=== PATIENT | female | born 1985 | race Caucasian/White ===

== ENCOUNTER 2016-07-01 11:02 | Emergency (ER) | payer OTHER ==
[2016-07-01 11:08] VITALS: BP 106/55; PULSE 76; TEMP 98.1; BMI 24.7
--- NOTE | 2016-07-01 11:12 | PDOC ---
History of Present Illness - General Chief Complaint: Pain Stated Complaint: LOWER BACK, ABD PAIN Time Seen by Provider: 07/01/16 11:10 - History of Present Illness Initial Comments: 07/01/16 11:29 Heather is a 31 year old female with no PMH who presents to ED today complaining of intermittent lower back pain, bloating and nausea for the past month. The pt is also complaining of increased frequency to urinate. She didn't have menstrual period last month, only spotting for a day. She did 3 tests at home and is unsure if it was positive. She denies fever, chills, SOB, abdominal pain, vomiting, diarrhea. She denies dysuria, flank pain. She denies correlation of bloating to food. Past History - Past Medical History Allergies/Adverse Reactions: Allergies Allergy/AdvReac Type Severity Reaction Status Date / Time No Known Allergies Allergy Verified 07/01/16 11:08 Home Medications: Ambulatory Orders NK [No Known Home Medication] 07/01/16 Hypercholesterolemia: Yes - Reproductive History Spontaneous : 0 - Psycho/Social/Smoking Cessation Hx Suicidal Ideation: No Smoking Status: No Smoking History: Never smoked Number of Cigarettes Smoked Daily: 0 Information on smoking cessation initiated: No Hx Alcohol Use: No Drug/Substance Use Hx: No Substance Use Type: None Review of Systems - Review of Systems Comments:: 07/01/16 11:39 REVIEW OF SYSTEMS CONSTITUTIONAL: Absent: fever, chills, diaphoresis, generalized weakness, malaise, loss of appetite, weight change HEENT: Absent: rhinorrhea, nasal congestion, throat pain, throat swelling, difficulty swallowing, mouth swelling, ear pain, eye pain, visual changes CARDIOVASCULAR: Absent: chest pain, syncope, palpitations, irregular heart rate, lightheadedness , peripheral edema RESPIRATORY: Absent: cough, shortness of breath, dyspnea with exertion, orthopnea, wheezing, stridor, hemoptysis GASTROINTESTINAL:abdominal distension, bloating Absent: abdominal pain, nausea, vomiting, diarrhea, constipation, melena, hematochezia GENITOURINARY: frequency Absent: dysuria, urgency, hesitancy, hematuria, flank pain, genital pain MUSCULOSKELETAL: back pain Absent: myalgia, joint swelling, back pain, neck pain SKIN: Absent: rash, itching, pallor HEMATOLOGIC/IMMUNOLOGIC: Absent: easy bleeding, easy bruising, lymphadenopathy, frequent infections ENDOCRINE: Absent: unexplained weight gain, unexplained weight loss, heat intolerance, cold intolerance NEUROLOGIC: Absent: headache, focal weakness or paresthesias, dizziness, unsteady gait, seizure, mental status changes, bladder or bowel incontinence *Physical Exam - Vital Signs Last Vital Signs Temp Pulse Resp BP Pulse Ox 98.1 F 76 18 106/55 100 07/01/16 11:06 07/01/16 11:06 07/01/16 11:06 07/01/16 11:06 07/01/16 11:06 - Physical Exam Comments: 07/01/16 11:40 GENERAL: The patient is awake, alert, and fully oriented, in no acute distress. HEAD: Normal with no signs of trauma. EYES: PERRL, extraocular movements intact, sclera anicteric, conjunctiva clear. No ptosis. ENT: Ears normal, nares patent, oropharynx clear without exudates, moist mucous membranes. NECK: Trachea midline, full range of motion, supple. LUNGS: Breath sounds equal, clear to auscultation bilaterally, no wheezes, no crackles, no accessory muscle use. HEART: Regular rate and rhythm, S1, S2 without murmur, rub or gallop. ABDOMEN: Soft, nontender, nondistended, normoactive bowel sounds, no guarding, no rebound, no hepatosplenomegaly, no masses. EXTREMITIES: 2+ pulses, warm, well-perfused, no edema. NEUROLOGICAL:Normal speech, gait not observed. PSYCH: Normal mood, normal affect. SKIN: Warm, dry, normal turgor, no rashes or lesions noted ED Treatment Course - LABORATORY CBC & Chemistry Diagram: 07/01/16 11:40 07/01/16 11:40 Medical Decision Making - Medical Decision Making 07/01/16 11:41 The pt is a 31 year old female who presents with bloating, nausea, back pain. We ordered urine test and UA. 07/01/16 13:55 test is negative. UA: no infection. We added CBC and CMP. The results of CBC: no elevated WBC, no anemia, waiting for CMP, TSH. *DC/Admit/Observation/Transfer Diagnosis at time of Disposition: Chronic fatigue - Discharge Dispostion Disposition: HOME Condition at time of disposition: Good Admit: No - Patient Instructions Additional Instructions: Please call Emergency Room to obtain the results of your laboratory test. We recommend to see primary care physician. If your symptoms worsen come back to Emergency Room as soon as possible.
[2016-07-01 11:41] LABS: URINE APPEARANCE CLEAR; URINE BILIRUBIN NEGATIVE (NEGATIVE); URINE BLOOD NEGATIVE (NEGATIVE); URINE COLOR YELLOW; URINE GLUCOSE (UA) NEGATIVE (NEGATIVE); URINE KETONE NEGATIVE (NEGATIVE); URINE NITRITE NEGATIVE (NEGATIVE); URINE PROTEIN NEGATIVE (NEGATIVE); URINE UROBILINOGEN NEGATIVE E.U./dl (0.2-1.0)
[2016-07-01 11:43] LABS: URINE LEUK ESTERASE TRACE (NEGATIVE)
--- NOTE | 2016-07-01 11:49 | PDOC ---
Attending Attestation - Resident Resident Name: Mary Kay Julio - ED Attending Attestation I have performed the following: I have examined & evaluated the patient, The case was reviewed & discussed with the resident, I agree w/resident's findings & plan, Exceptions are as noted - HPI HPI: 07/01/16 11:00 The patient is a 31 year old female with no significant past medical history, who presents to the emergency department with multiple chronic complaints. She states that for the past 36 months she has had intermittent abdominal bloating and low back discomfort. She has also had intermittent fatigue. She has also had intermittent urinary frequency and urgency. She states that she took 3 tests, one of which was positive, so after approximately 35 minutes. She denies any association of these symptoms with specific foods. She denies weight loss, fever, chills, sweats. She denies heat or cold intolerance, bowel habit changes. 07/01/16 11:49 - Physicial Exam PE: 07/01/16 11:00 She is well-appearing and in no acute distress Abdomen is soft and nontender 07/01/16 11:49 - Medical Decision Making 07/01/16 11:00 She is well-appearing and in no acute distress Will obtain basic labs, urinalysis, urine test 07/01/16 14:26 Chemiustries have been pending since 11am despite requests to have them expedited The patient needs to leave to fish bait picker her daughter and emigdio call us for results Clinical impression: Chronic fatigue I discussed the physical exam findings, ancillary test results and final diagnoses with the patient. I answered all of the patient's questions. The patient was satisfied with the care received and felt comfortable with the discharge plan and treatment plan. The patient will call their primary care physician within 24 hours to arrange follow-up and will return to the Emergency Department with any new, persistent or worsening symptoms.
[2016-07-01 11:53] LABS: URINE MUCUS RARE; URINE RBC 2 /hpf (0-3); URINE WBC 4 /hpf (3-5)
[2016-07-01 11:57] LABS: MCH 29.2 pg (25.7-33.7); MCHC 34.8 g/dl (32.0-36.0); MEAN CELL VOLUME 83.9 fl (80-96); MEAN PLT VOLUME 8.8 fl (7.5-11.1); PLATELET COUNT 316 K/MM3 (134-434); RDW 13.6 % (11.6-15.6); WHITE BLOOD COUNT 8.5 K/mm3 (4.0-10.0)
== END 2016-07-01 14:35 | disposition home or self-care (01) ==
LOC: JER 11:02
DX: R53.82 Chronic fatigue, unspecified (principal); E78.00 Pure hypercholesterolemia, unspecified
CPT/HCPCS: 36415; 81003; 81015; 84703; 85027; 99283-25

== ENCOUNTER 2016-08-09 18:10 | Emergency (ER) | payer OTHER ==
[2016-08-09 18:17] VITALS: BP 120/66; PULSE 102; TEMP 98; BMI 27.3
--- NOTE | 2016-08-09 18:57 | PDOC ---
History of Present Illness - General Chief Complaint: Respiratory Stated Complaint: SHORTNESS OF BREATH Time Seen by Provider: 08/09/16 18:36 History Source: Patient Exam Limitations: No Limitations - History of Present Illness Initial Comments: 08/09/16 18:52 31 yr female states 6 weeks c/o sinus congestion and facial pressure for one week. no fever some nasal drainage . Timing/Duration: reports: week Severity: reports: mild Past History - Past Medical History Allergies/Adverse Reactions: Allergies Allergy/AdvReac Type Severity Reaction Status Date / Time No Known Allergies Allergy Verified 08/09/16 18:14 Home Medications: Ambulatory Orders Amoxicillin/Potassium Clav [Augmentin 875-125 Tablet] 1 each PO BID #14 tablet 08/09/16 Hypercholesterolemia: Yes - Reproductive History Spontaneous : 0 - Psycho/Social/Smoking Cessation Hx Anxiety: No Suicidal Ideation: No Smoking Status: No Smoking History: Never smoked Have you smoked in the past 12 months: No Number of Cigarettes Smoked Daily: 0 Information on smoking cessation initiated: No Hx Alcohol Use: No Drug/Substance Use Hx: No Substance Use Type: None *Physical Exam - Vital Signs Last Vital Signs Temp Pulse Resp BP Pulse Ox 98 F 102 H 18 120/66 100 08/09/16 18:15 08/09/16 18:15 08/09/16 18:15 08/09/16 18:15 08/09/16 18:15 - Physical Exam General Appearance: Yes: Nourished, Appropriately Dressed HEENT: positive: EOMI, LEXI, TMs Normal, Pharynx Normal, Nasal Congestion, Sinus Tenderness (maxilary ), Other (swelling across the nasal bridge to under eyes bilateraly ). negative: Tonsillar Exudate, Tonsillar Erythema, TM Bulging , TM Dull, TM Erythema Neck: positive: Supple. negative: Tender Respiratory/Chest: positive: Lungs Clear, Normal Breath Sounds Cardiovascular: positive: Regular Rhythm, Regular Rate Gastrointestinal/Abdominal: positive: Normal Bowel Sounds, Soft Musculoskeletal: positive: Normal Inspection Extremity: positive: Normal Capillary Refill, Normal Inspection, Normal Range of Motion Integumentary: positive: Normal Color, Dry, Warm Neurologic: positive: Fully Oriented, Alert, Normal Mood/Affect, Normal Response , Motor Strength 5/5 Medical Decision Making - Medical Decision Making 08/09/16 19:01 cc: sinus tenderness, congestion for one week , nasal discharge and boggyness to bilateral nares will treat with Augmentin and saline spray follow up with ENT tylenol as needed for pain return to ER for any worsening symptoms in 48hrs *DC/Admit/Observation/Transfer Diagnosis at time of Disposition: Acute maxillary sinusitis Qualifiers: Recurrence: non-recurrent Qualified Code(s): J01.00 - Acute maxillary sinusitis , unspecified - Discharge Dispostion Disposition: HOME Condition at time of disposition: Good - Prescriptions Prescriptions: Amoxicillin/Potassium Clav [Augmentin 875-125 Tablet] 1 each PO BID #14 tablet - Referrals Referrals: STAFF,NOT ON [Primary Care Provider] - Darek Gonzalez MD [Staff Physician] - - Patient Instructions Additional Instructions: use nasal saline as directed (over the counter) take the Augmentin as directed for 7 days frequent cool compresses over your cheeks and eyes can help with pain take tylenol as needed for pain follow with ENT call tomorrow to make appointment Return to ER for any worsening symptoms
== END 2016-08-09 19:01 | disposition home or self-care (01) ==
LOC: JERFT 18:10
DX: O99.89 Other specified diseases and conditions complicating pregnancy, childbirth and the puerperium (principal); J01.00 Acute maxillary sinusitis, unspecified; Z3A.01 Less than 8 weeks gestation of pregnancy
CPT/HCPCS: 99281-25

== ENCOUNTER 2017-07-08 06:25 | Emergency (ER) | payer OTHER ==
[2017-07-08 06:46] LABS: BASO % 0.4 % (0-2.0); EOS % 1.8 % (0-4.5); HEMATOCRIT 37.9 % (32.4-45.2); HEMOGLOBIN 13.4 GM/dL (10.7-15.3); MCH 30.6 pg (25.7-33.7); MCHC 35.3 g/dl (32.0-36.0); MEAN CELL VOLUME 86.5 fl (80-96); MONO % 7.8 % (3.8-10.2); PLATELET COUNT 327 K/MM3 (134-434); RBC 4.38 M/mm3 (3.60-5.2); RDW 13.8 % (11.6-15.6); WHITE BLOOD COUNT 7.1 K/mm3 (4.0-10.0)
[2017-07-08 06:55] VITALS: BMI 25.4
[2017-07-08 07:13] LABS: ALBUMIN 3.9 g/dl (3.4-5.0); ANION GAP 9 (8-16); BILIRUBIN,TOTAL 0.5 mg/dL (0.2-1.0); BLOOD UREA NITROGEN 13 mg/dL (7-18); CHLORIDE 106 mmol/L (98-107); CO2 26 mmol/L (21-32); CREATININE 0.7 mg/dL (0.55-1.02); GLUCOSE,RANDOM 89 mg/dL (74-106); SGOT/AST 13 U/L (15-37); SGPT/ALT 18 U/L (12-78); SODIUM 141 mmol/L (136-145); TOT PROT 7.5 g/dl (6.4-8.2)
[2017-07-08 07:14] LABS: ALK PHOS 54 U/L (45-117)
[2017-07-08] MEDS ORDERED: morphine CARPU-JECT 4 MG/1 ML DISP.SYRIN IVPUSH ONE (07:24)
[2017-07-08] MEDS ORDERED: SODIUM CHLORIDE 1,000 ML IV STA ×2 (07:24→10:52)
--- NOTE | 2017-07-08 07:30 | PDOC ---
Attending Attestation - Resident Resident Name: Mc Ortiz - ED Attending Attestation I have performed the following: I have examined & evaluated the patient, The case was reviewed & discussed with the resident, I agree w/resident's findings & plan, Exceptions are as noted - HPI HPI: 07/08/17 09:52 Ms Ventura is a 32-year-old female presented to emergency department with a complaint of pelvic pain, vaginal bleeding. Her history is constipated and includes a recent , status post medical termination, pt reports bleeding and abdominal pain. 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
[2017-07-08] MEDS ORDERED: MORPHINE SULFATE 10 MG/1 ML *VIAL ONE (07:44)
[2017-07-08] MEDS ORDERED: LACTATED RINGERS SOLUTION 1000 ML INFUS.BAG IV ONE (07:49)
--- NOTE | 2017-07-08 08:04 | PDOC ---
History of Present Illness - General Chief Complaint: Pain, Acute Stated Complaint: ABDOMINAL PAIN Time Seen by Provider: 07/08/17 07:16 History Source: Patient Exam Limitations: No Limitations - History of Present Illness Initial Comments: 07/08/17 07:56 Patient is a 32F with history of an unknown sexually transmitted disease here today complaining of 1 day of lower abdominal pain. Patient states that she is unsure if she has pain with urination. Endorses vaginal bleeding and spotting for the past month. Patient has IUD placed 3 weeks ago after taking oral contraceptives for a week. Patient states that she took a pill for an 6 weeks ago. Last bowel movement yesterday. Denies fevers, chills, nausea, vomiting. Her pain is worsened with exertion and movement. Past History - Past Medical History Allergies/Adverse Reactions: Allergies Allergy/AdvReac Type Severity Reaction Status Date / Time No Known Allergies Allergy Verified 07/08/17 07:17 Home Medications: Ambulatory Orders Amoxicillin/Potassium Clav [Augmentin 875-125 Tablet] 1 each PO BID #14 tablet 08/09/16 Amoxicillin/Potassium Clav [Augmentin 875-125 Tablet] 1 each PO BID #28 tablet 07/08/17 COPD: No Hypercholesterolemia: Yes - Reproductive History Spontaneous : 0 - Suicide/Smoking/Psychosocial Hx Smoking Status: No Smoking History: Unknown if ever smoked Have you smoked in the past 12 months: No Number of Cigarettes Smoked Daily: 0 Information on smoking cessation initiated: No Hx Alcohol Use: No Drug/Substance Use Hx: No Substance Use Type: None Review of Systems - Review of Systems Comments:: 07/08/17 08:04 GENERAL/CONSTITUTIONAL: No fever or chills. No weakness. HEAD, EYES, EARS, NOSE AND THROAT: No change in vision. No sore throat. CARDIOVASCULAR: No chest pain or shortness of breath RESPIRATORY: No cough, wheezing, or hemoptysis. GASTROINTESTINAL: No nausea, vomiting, diarrhea or constipation. GENITOURINARY: No dysuria, frequency, or change in urination. MUSCULOSKELETAL: No joint or muscle swelling or pain. No neck or back pain. SKIN: No rash NEUROLOGIC: No headache, vertigo, loss of consciousness, or change in strength/ sensation. ALLERGIC/IMMUNOLOGIC: No hives or skin allergy. *Physical Exam - Vital Signs Last Vital Signs Temp Pulse Resp BP Pulse Ox 98.7 F 72 17 108/67 100 07/08/17 06:52 07/08/17 06:52 07/08/17 06:52 07/08/17 06:52 07/08/17 06:52 - Physical Exam Comments: 07/08/17 08:05 GENERAL: Awake, alert, and fully oriented, in no acute distress PELVIC: Normal external genitalia, +CMT, moderate amount of blood in vagina, closed cervical os, IUD not visualized. HEAD: No signs of trauma, normocephalic, atraumatic EYES: PERRLA, EOMI, sclera anicteric, conjunctiva clear ENT: Auricles normal inspection, hearing grossly normal, nares patent, oropharynx clear without exudates. Moist mucosa NECK: Normal ROM, supple, no lymphadenopathy, JVD, or masses LUNGS: No distress, speaks full sentences, clear to auscultation bilaterally HEART: Regular rate and rhythm, normal S1 and S2, no murmurs, rubs or gallops, peripheral pulses normal and equal bilaterally. ABDOMEN: Soft, tender in lower abdomen. Positive for voluntary guarding, no rebound. No masses EXTREMITIES: Normal inspection, Normal range of motion, no edema. No clubbing or cyanosis. NEUROLOGICAL: Cranial nerves II through XII grossly intact. Normal speech, normal gait, no focal sensorimotor deficits SKIN: Warm, Dry, normal turgor, no rashes or lesions noted. ED Treatment Course - LABORATORY CBC & Chemistry Diagram: 07/08/17 06:32 07/08/17 06:32 - ADDITIONAL ORDERS Additional order review: Laboratory Results 07/08/17 06:32 Sodium 141 Potassium 4.0 Chloride 106 Carbon Dioxide 26 Anion Gap 9 BUN 13 Creatinine 0.7 Creat Clearance w eGFR > 60 Random Glucose 89 Calcium 9.0 Total Bilirubin 0.5 AST 13 L ALT 18 Alkaline Phosphatase 54 Total Protein 7.5 Albumin 3.9 07/08/17 06:32 RBC 4.38 MCV 86.5 MCHC 35.3 RDW 13.8 MPV 9.0 Neutrophils % 62.0 Lymphocytes % 28.0 Monocytes % 7.8 Eosinophils % 1.8 D Basophils % 0.4 - RADIOLOGY Radiology Studies Ordered: Category Date Time Status TRANSVAGINAL ULTRASOUND US [US] Stat Ultrasound 07/08/17 07:36 Ordered - Medications Given in the ED: ED Medications Discontinued Medications Generic Name Dose Route Start Last Admin Trade Name Freq PRN Reason Stop Dose Admin Morphine Sulfate 4 mg 07/08/17 07:24 07/08/17 07:48 Morphine Injection - IVPUSH 07/08/17 07:25 4 mg ONCE ONE Administration Medical Decision Making - Medical Decision Making 07/08/17 08:06 Patient is a 32F with history of STD here today with lower abdominal pain. +CMT on exam with suprapubic tenderness. Believe patient has PID. Will evaluate further with cbc, cmp, ua, test and ultrasound to evaluate for TOA. 07/08/17 08:10 Laboratory Tests 07/08/17 07/08/17 06:32 07:26 WBC 7.1 Hgb 13.4 Hct 37.9 Plt Count 327 Serum , Qual Positive Serum positive, will add on beta quant. 07/08/17 08:59 Dr Lion consulted, examined patient. Believes that patient has PID. Recommends that treat today with IV ceftriaxone, metronidazole and PO azithromycin and discharge with PO augmentin and metronidazole. 07/08/17 10:42 Laboratory Tests 07/08/17 07/08/17 07/08/17 06:32 06:32 07:26 WBC 7.1 Hgb 13.4 Hct 37.9 Plt Count 327 Beta HCG, Quant 66.2 Serum , Qual Positive Urine Blood Ur Leukocyte Esterase Urine WBC (Auto) 07/08/17 09:25 WBC Hgb Hct Plt Count Beta HCG, Quant Serum , Qual Urine Blood 3+ H Ur Leukocyte Esterase 1+ H Urine WBC (Auto) 7 CBC normal. Beta quant positive to 66.2. CMP reassuring. UA shows possible UTI, will be covered by augmentin and metronidazole. US shows properly placed IUD, mildly thickened endometrium, ovariance cysts with 4cm and 3cm in diameter, no evidence of torsion. IV antibiotics running, will discharge with instructions to follow up with OBGYN. 07/08/17 10:53 Patient reassessed. Pain improved. Feeling better. *DC/Admit/Observation/Transfer Diagnosis at time of Disposition: PID (acute pelvic inflammatory disease), test positive - Discharge Dispostion Disposition: HOME Condition at time of disposition: Good Admit: No - Prescriptions Prescriptions: Amoxicillin/Potassium Clav [Augmentin 875-125 Tablet] 1 each PO BID #28 tablet - Referrals Referrals: Annie Lion MD [Staff Physician] - - Patient Instructions Printed Discharge Instructions: DI for Pelvic Inflammatory Disease Additional Instructions: You were prescribed antibiotics to take at home. They have been sent to your pharmacy. Please start taking them tonight. If you are unable to take your antibiotics, please come back to the Emergency Department. You had a positive test in the ED today. Please return in two days to the ED to have another blood test. Please call the OBGYN physician provided in your paperwork on Monday to schedule an appointment. Please return if you have any new, worsening or concerning symptoms. - Post Discharge Activity
[2017-07-08] MEDS ORDERED: CEFTRIAXONE 1,000 MG in DEXTROSE 5%-WATER - 50 ML IVPB ONE (08:57)
[2017-07-08] MEDS ORDERED: AZITHROMYCIN 500 MG TABLET PO ONE ×2 (08:58→10:46)
[2017-07-08] MEDS ORDERED: CEFTRIAXONE 1 GM/50 ML BAG ONE (09:24)
[2017-07-08] MEDS ORDERED: AZITHROMYCIN IVPB 250 ML IVPB ONE (09:24)
[2017-07-08 09:45] LABS: URINE APPEARANCE CLEAR; URINE BILIRUBIN NEGATIVE (<2.0 mg/dL); URINE BLOOD 3+ (NEGATIVE); URINE COLOR YELLOW; URINE GLUCOSE (UA) NEGATIVE (NEGATIVE); URINE KETONE NEGATIVE (NEGATIVE); URINE NITRITE NEGATIVE (NEGATIVE); URINE PROTEIN NEGATIVE (NEGATIVE); URINE UROBILINOGEN NEGATIVE mg/dL (0.2-1.0)
[2017-07-08] MEDS ORDERED: AZITHROMYCIN 500 MG TABLET ONE (09:45)
[2017-07-08 09:48] LABS: URINE LEUK ESTERASE 1+ (NEGATIVE)
[2017-07-08 09:53] LABS: EPI CELLS RARE /HPF (FEW); URINE MUCUS RARE
[2017-07-08] MEDS ORDERED: AZITHROMYCIN IVPB 500 MG in DEXTROSE 5%-WATER - 250 ML IVPB ONE (10:46)
[2017-07-08 11:00] VITALS: TEMP 97.8
--- NOTE | 2017-07-08 11:27 | CON.OBG ---
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 since today AM History of Present Illness: ptt has h/o temination of for 6 weeks gestation at [facility] in [place] . Medically induced on 05/24/17. pt c/o bleeding since then , she had heavy bleeding for 3-4 weeks , but noww it has become less , sometimes spoting. she was given [place] control pills , she took only for 1 weekk she states she had Paragard IUD inserted 3 weeks ago there. But she has been having abd pain ever since TOP, it has not stopped she declines h/o std no c/o vomiting or fever or diarrhea . 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 No: Gastritis Renal/: Yes: Other (c/o dysuria due to pain ). No: UTI Reproductive: Yes: Other (OB History : G1 02/05/2009 Primary c/section due to FTP at [facility] . G2 Sp Ab 5 months , G3 Ind ab medicall 05/24/17 in ). No: Ectopic , Endometriosis, Fibroids, Polycystic Ovary Syndrome ...LMP: 04/11/17 (before TOP , continuous bleeding since TOP ) ...: No ...: 3 ...Para: 1 Heme/Onc: No: Anemia Infectious Disease: Yes: Other (declines h/o std ) Psych: Yes: Other (declines mental health problems ) - Past Surgical History Past Surgical History: Yes: (02/05/2009) Additional Surgical History: abdominoplasty 2014 in [facility] - Alcohol/Substance Use Hx Alcohol Use: No History of Substance Use: reports: None - Smoking History Smoking history: Unknown if ever smoked Have you smoked in the past 12 months: No Aproximately how many cigarettes per day: 0 Home Medications - Allergies Allergies/Adverse Reactions: Allergies Allergy/AdvReac Type Severity Reaction Status Date / Time No Known Allergies Allergy Verified 07/08/17 07:17 - Home Medications Home Medications: Ambulatory Orders Amoxicillin/Potassium Clav [Augmentin 875-125 Tablet] 1 each PO BID #14 tablet 08/09/16 Amoxicillin/Potassium Clav [Augmentin 875-125 Tablet] 1 each PO BID #28 tablet 07/08/17 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 No: Distention, Vomiting ...Rectal Exam: Yes: Deferred Pelvis: Yes: Tenderness (supf & deep tenderness) External Genitalia: Yes: Normal Internal Exam Deferred: Yes Vaginal Exam: Yes: Bleeding (stainng ,iud string noted) Cervix: Yes: Cerv Motion Tenderness, Other (iud string palpable) Uterus: Yes: Anteverted, Tender, Other (unable to dtermine size due to tendeness ) Adnexa: Tender: Bilateral (unable to palpate due to tenderness ) Breast(s): Yes: WNL. No: Mass Musculoskeletal: Yes: WNL Extremities: Yes: WNL. No: Calf Tenderness Edema: No Integumentary: Yes: Incision (abdominoplasty keloid type scar, across lower abd) , Tattoos Neurological: Yes: WNL, Alert, Oriented ...Motor Strength: WNL Psychiatric: Yes: WNL Labs: CBC, BMP 07/08/17 06:32 07/08/17 06:32 Laboratory Tests 07/08/17 07/08/17 07/08/17 06:32 08:00 09:25 AST 13 L ALT 18 Beta HCG, Quant 66.2 Urine Protein Negative Urine Nitrite Negative Ur Leukocyte Esterase 1+ H Urine WBC (Auto) 7 Urine RBC (Auto) 41 C. trachomatis (BERNARDO) Pending N. gonorrhoeae (BERNARDO) Pending Problem List - Problems (1) Acute PID (pelvic inflammatory disease) Code(s): N73.0 - ACUTE PARAMETRITIS AND PELVIC CELLULITIS (2) Status post elective Code(s): Z98.890 - OTHER SPECIFIED POSTPROCEDURAL STATES (3) IUD (intrauterine device) in place Code(s): Z97.5 - PRESENCE OF (INTRAUTERINE) CONTRACEPTIVE DEVICE Assessment/Plan 32 yrs , s/p recent medically induced abortio is bleeding since , AC pid suspected Plan IV rocephine & IV flagyl , Po zithromax pt should be discharged on po Augmentin bid needs follow up hcg., to see declining titer . 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
[2017-07-08 15:58] VITALS: BP 100/56; PULSE 76
== END 2017-07-08 13:21 | disposition home or self-care (01) ==
LOC: JER 06:25
PROC: 3E03329 Introduction of Other Anti-infective into Peripheral Vein, Percutaneous Approach (ICD-10-PCS; principal; 2017-07-08)
PROC: 3E03329 Introduction of Other Anti-infective into Peripheral Vein, Percutaneous Approach (ICD-10-PCS; 2017-07-08)
PROC: 3E033NZ Introduction of Analgesics, Hypnotics, Sedatives into Peripheral Vein, Percutaneous Approach (ICD-10-PCS; 2017-07-08)
DX: N73.0 Acute parametritis and pelvic cellulitis (principal); O03.6 Delayed or excessive hemorrhage following complete or unspecified spontaneous abortion; Z97.5 Presence of (intrauterine) contraceptive device; Z98.890 Other specified postprocedural states
CPT/HCPCS: 36415; 76817-TC; 80053; 81003; 81015; 84702; 84703; 85025; 86850; 86900; 86901; 87086; 87491; 87591; 96365; 96367; 96375; 99284-25; J7030

== ENCOUNTER 2017-12-11 22:00 | Emergency (ER) | payer OTHER ==
[2017-12-11 22:25] VITALS: TEMP 99.2; BMI 25.4
--- NOTE | 2017-12-11 23:21 | PDOC ---
History of Present Illness - General Chief Complaint: Cold Symptoms Stated Complaint: SWOLLEN NOSE Time Seen by Provider: 12/11/17 22:54 History Source: Patient Exam Limitations: No Limitations - History of Present Illness Initial Comments: 12/11/17 23:11 32 yo female no significant pmh presents to the ED for 1 week of nasal congestion, sinus pressure and headaches. States she took tylenol, psuedophed and mucinex without relief. Denies sore throat, cough, ear pain, F/C/N/V, SOB, CP or abdominal pain. Past History - Past Medical History Allergies/Adverse Reactions: Allergies Allergy/AdvReac Type Severity Reaction Status Date / Time No Known Allergies Allergy Verified 12/11/17 23:42 Home Medications: Ambulatory Orders NK [No Known Home Medication] 12/11/17 COPD: No Hypercholesterolemia: Yes - Reproductive History (#): 3 Para: 1 Spontaneous : 0 - Suicide/Smoking/Psychosocial Hx Smoking Status: No Smoking History: Never smoked Have you smoked in the past 12 months: No Number of Cigarettes Smoked Daily: 0 Information on smoking cessation initiated: No Hx Alcohol Use: No Drug/Substance Use Hx: No Substance Use Type: None Review of Systems - Review of Systems Constitutional: No: Chills, Fever HEENTM: Yes: Nose Congestion. No: Blurred Vision, Ear Discharge, Throat Pain, Difficulty Swallowing Respiratory: No: Cough, Shortness of Breath Cardiac (ROS): No: Chest Pain ABD/GI: No: Constipated, Diarrhea, Nausea, Vomiting : No: Burning, Dysuria, Discharge, Frequency Neurological: Yes: Headache *Physical Exam - Vital Signs Last Vital Signs Temp Pulse Resp BP Pulse Ox 99.2 F 73 18 95/71 100 12/11/17 22:23 12/11/17 22:23 12/11/17 22:23 12/11/17 22:23 12/11/17 22:23 - Physical Exam General Appearance: Yes: Nourished, Appropriately Dressed. No: Apparent Distress HEENT: positive: EOMI, Normal ENT Inspection, TMs Normal, Sinus Tenderness, Hearing Grossly Normal. negative: Pale Conjunctivae, Rhinorrhea, TM Bulging, TM Erythema Neck: positive: Normal Thyroid. negative: Tender, Lymphadenopathy (R), Lymphadenopathy (L) Respiratory/Chest: positive: Lungs Clear, Normal Breath Sounds. negative: Stridor, Wheezing Cardiovascular: positive: Regular Rhythm, Regular Rate, S1, S2. negative: Edema , JVD, Murmur Vascular Pulses: Dorsalis-Pedis (R): 4+, Doralis-Pedis (L): 4+ Gastrointestinal/Abdominal: positive: Normal Bowel Sounds, Soft. negative: Pulsatile Mass, Distended, Guarding, Rebound Integumentary: positive: Normal Color, Dry, Warm Neurologic: positive: Fully Oriented, Alert, Normal Mood/Affect, Normal Response Medical Decision Making - Medical Decision Making 12/11/17 23:45 32 yo female presents to ED for NUNEZ, sinus pain and nasal congestion. Advised to take over the counter higher dose psuedophed, hot showers and Motrin/ Tylenol as needed Referred to resident clinic Discharge home *DC/Admit/Observation/Transfer Diagnosis at time of Disposition: Sinusitis Qualifiers: Sinusitis location: ethmoidal Chronicity: acute Recurrence: not specified as recurrent Qualified Code(s): J01.20 - Acute ethmoidal sinusitis, unspecified - Discharge Dispostion Disposition: HOME Condition at time of disposition: Good Decision to Admit order: No - Referrals Referrals: [facility] [Other Staff,non-medical] - - Patient Instructions Printed Discharge Instructions: How to Avoid a Cold or Flu, DI for Sinusitis Additional Instructions: Please take over the counter Motrin and Tylenol as needed. Also take higher dose over the counter Pseudoephedrine as directed by Pharmacist. Please follow up with the referred Primary Care Clinic within the next 48 hours. Return to the Emergency Room for new or worsening symptoms including but not limited to: persistent headaches not relieved by over the counter medication, high fevers, chest pain, shortness of breath or coughing up blood. - Post Discharge Activity Forms/Work/School Notes: Back to Work
[2017-12-11] MEDS ORDERED: ACETAMINOPHEN 500 MG TABLET (FP) PO ONE (23:48)
--- NOTE | 2017-12-11 23:52 | PDOC ---
Attending Attestation - Resident Resident Name: BerthaNazario - ED Attending Attestation I have performed the following: I have examined & evaluated the patient, The case was reviewed & discussed with the resident, I agree w/resident's findings & plan - HPI HPI: 12/11/17 23:52 The patient is a 32 year old female, with no significant past medical history, who presents to the emergency department with one week of headache, sinus pain, and sinus congestion. She states she has taken Tylenol and Sudafed without any relief of her sinus congestion. The patient denies chest pain, shortness of breath, and dizziness. The patient denies fever, chills, nausea, vomit, diarrhea and constipation. The patient denies dysuria, frequency, urgency and hematuria. Allergies: NKDA Past surgical history: none reported Social history: denies ETOH or tobacco - Physicial Exam PE: 12/11/17 23:52 NAD, well appearing, NCAT, PERRL, EOMI, clear conjunctiva, anicteric, moist mucus membranes, clear oropharynx. Airway patent, normal phonation. Uvula midline. +mild frontal sinus tender to percussion, MMM, nl conjunctiva, anicteric; neck supple, no meningeal signs. lungs clear, RRR, abdomen soft nontender. PETTIT x4, no focal neuro deficits. No peripheral edema. normal color for ethnicity, WWP. - Medical Decision Making 12/11/17 23:48 A portion of this note was documented by scribe services under my direction. I have reviewed the details of the note, within reason, and agree with the documentation with the following case summary and management plan written by me. MDM: Audrey 32 YOF with congestion and sinus pressure and headache x 1 week, s/ p mucinex, pseudophed and tylenol with some relief. 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 No fever or chill/sore throat, vomiting or diarrhea. Vital signs reviewed, wnl. Well appearing, nontoxic. PE unremarkable as documented. Given tylenol for mild headache. Nader PO intake w/o difficulty. Instructions of dosing of meds, humidifier and sinus decongestants. tylenol/NSAID PRN pain and headache control. Most likely viral syndrome vs sinusitis, no indication for antibiotics as <2 weeks and no fever or systemic sx to suggest bacterial infection. Dispo: Pt to be discharged in stable condition. Patient and family made aware of impression and plan, return precautions discussed (including but not limited to worsening pain or symptoms), fevers, or signs of infection, chest pain, respiratory distress, inability to tolerate oral intake, dehydration, syncope, or neurologic changes). Follow up with PMD and/or specialist as recommended, follow up information provided, take medications as instructed for duration of time. continue with supportive care, avoid triggers and precipitants. All questions answered to patient's satisfaction and expressed understanding and comfort with this. 12/11/17 23:52 12/11/17 23:52
[2017-12-12] MEDS ORDERED: ACETAMINOPHEN 325 MG TABLET (FP) ONE
[2017-12-12 00:05] VITALS: BP 102/67; PULSE 78
== END 2017-12-12 00:04 | disposition home or self-care (01) ==
LOC: JER 22:00
DX: J01.20 Acute ethmoidal sinusitis, unspecified (principal)
CPT/HCPCS: 99282-25

== ENCOUNTER 2019-01-01 10:53 | Emergency (ER) | payer OTHER ==
[2019-01-01 10:58] VITALS: TEMP 98.6; BMI 27.3
[2019-01-01] MEDS ORDERED: ACETAMINOPHEN 325 MG TABLET (FP) PO ONE (11:05)
[2019-01-01] MEDS ORDERED: SODIUM CHLORIDE 1,000 ML IV STA (11:05)
--- NOTE | 2019-01-01 11:14 | PDOC ---
History of Present Illness - General Chief Complaint: Pain Stated Complaint: PAIN Time Seen by Provider: 01/01/19 11:04 History Source: Patient Exam Limitations: No Limitations - History of Present Illness Initial Comments: 01/01/19 11:57 33 YOF with h.o PID presenting with +home testing, suprapubic cramping and VB pt states about 2 weeks ago after sexual intercourse, she had 1 day of VB with some passage of clots and intermittent suprapubic cramping. also intermittently Nausea and vomiting. LMP November 07, 2018 Sexually active. Denies fever, chills, chest pain, SOB, dizziness, weakness, bladder and bowel problems, leg swelling, rash. no flank pain. PSH: C section PMH: PID, STD Social: no smoking, etoh or drugs 01/01/19 11:58 01/01/19 11:58 Past History - Past Medical History Allergies/Adverse Reactions: Allergies Allergy/AdvReac Type Severity Reaction Status Date / Time No Known Allergies Allergy Verified 01/01/19 09:42 Home Medications: Ambulatory Orders NK [No Known Home Medication] 12/11/17 COPD: No Hypercholesterolemia: Yes - Reproductive History (#): 3 Para: 1 Spontaneous : 0 - Psycho Social/Smoking Cessation Hx Smoking Status: No Smoking History: Never smoked Have you smoked in the past 12 months: No Number of Cigarettes Smoked Daily: 0 Hx Alcohol Use: No Drug/Substance Use Hx: No Substance Use Type: None Review of Systems - Review of Systems Able to Perform ROS?: Yes Comments:: 01/01/19 11:07 Review of systems Constitutional: no fevers or chills. No weakness HEENT: no headache or dizziness. No congestion. No visual/hearing disturbances. CVS: no cp or syncope. Resp: no sob. No cough. Gastrointestinal: +abdominal pain, nausea and vomiting. Genitourinary: no urinary sx, hematuria. +vaginal bleeding. MUSCULOSKELETAL: No joint pain and swelling. No neck or back pain. SKIN: no redness or skin changes, no discharge, no rash. No wounds. Hematologic: no easy bruising/bleeding. NEUROLOGIC: No headache, dizziness, LOC or altered mental status. No weakness, numbness or tingling. Psych: no anxiety or depression Allergic/Immunologic: no allergies All other systems reviewed and negative, or as documented in HPI. 01/01/19 11:58 *Physical Exam - Vital Signs Last Vital Signs Temp Pulse Resp BP Pulse Ox 98.6 F 88 17 99/62 99 01/01/19 10:57 01/01/19 10:57 01/01/19 10:57 01/01/19 10:57 01/01/19 11:04 - Physical Exam Comments: 01/01/19 11:07 General: Well appearing, awake and alert, NAD. HEENT: NCAT, PERRL, EOMI, clear conjunctiva, anicteric, moist mucus membranes, clear oropharynx, no oral lesions.. Neck: neck supple, FROM Resp: CTAB, normal and even respirations, no respiratory distress CVS: RRR, no murmurs, 2+ peripheral pulses throughout, no peripheral edema Abdomen: soft, NTND, no rebound or guarding. No CVAT. lower horizontal abdominal surgical scar Pelvic: normal external genitalia, no lesions, clear vaginal vault, no CMT, no adnexal tenderness. Smooth and pink cervix, closed. Back: nontender, normal inspection and ROM MSK: no edema, PETTIT x4, ROM intact. No clubbing or cyanosis. normal bulk and tone. Extremities: no calf tenderness Neuro: alert, oriented appropriately; no focal neurologic deficits Psych: Calm and cooperative Skin: warm and well perfused, cap refill <2 sec, normal color 01/01/19 11:58 Procedures - Bedside Ultrasound Remarks: 01/01/19 11:59 Bedside pelvic US performed for female with VB and /or abdominal pain. views obtained: transverse and sagittal suprapubic views, transvaginally, findings no def IUP, no FP or YS seen, no pelvic FF. Impression: no definitive IUP seen ED Treatment Course - LABORATORY CBC & Chemistry Diagram: 01/01/19 12:15 01/01/19 12:15 Medical Decision Making - Medical Decision Making 01/01/19 12:00 Vital Signs Temp Pulse Resp BP Pulse Ox 98.6 F 88 17 99/62 99 01/01/19 10:57 01/01/19 10:57 01/01/19 10:57 01/01/19 10:57 01/01/19 11:04 VS reviewed, wnl, soft BP, baseline for otherwise healthy individual. DDx female VB: ectopic , miscarriage, demise, subchorionic hematoma, retained POC, normal first trimester bleeding, UTI in in . Fibroid uterus, vaginitis, infection, electrolyte/metabolic derangements, anemia. Bedside pelvic sono TAB and TVUS without def IUP seen. Rh positive, no rhogam indicated VS wnl, normotensive, no tachy or hypoxia/respiratory distress. abdomen benign on reeval and no peritoneal findings, no VB here Beta hcg negative, so not TVUS no IUP, also not with neg preg beta hcg likely miscarriage Intervention: IVF, tylenol analgesia. no bleeding here information given, likely miscarriage, reassurance given, rest, hydration and f/ u [employer] [place] stable condition, return to ED if persistent and heavy vaginal bleeding, persistent pelvic pain not relieved by your prescribed medications, dizziness, shortness of breath, new and persistent fevers, other foul smelling discolored vaginal discharge, or for any other concerns. 01/03/19 09:29 *DC/Admit/Observation/Transfer Diagnosis at time of Disposition: Vaginal bleeding - Discharge Dispostion Disposition: HOME Condition at time of disposition: Improved Decision to Admit order: No - Referrals Referrals: Yong Cook MD [Staff Physician] - Annie Lion MD [Staff Physician] - - Patient Instructions Printed Discharge Instructions: DI for Vaginal Bleeding Additional Instructions: 1) Please follow-up with your primary care doctor in the next 1-2 days. Please call tomorrow for for any urgent issues. 2) You were given a copy of the tests performed today. Please bring the results with you and review them with your primary care doctor. Your laboratory / imaging results were normal, your ultrasound did not show a . your test was also negative 3) If you have any worsening of symptoms or any other concerns please return to the ED immediately. Return if worsening symptoms including fevers, headache, vomiting, visual or hearing disturbances, abdominal pain, chest pain, shortness of breath, syncope, dehydration, inability to take things by mouth/vomiting, altered mental status, or worsening concerning symptoms. Stay well hydrated and rest adequately. Make an appointment. If you cannot follow-up with your primary care doctor please return to the ED - Post Discharge Activity Forms/Work/School Notes: Back to Work Discharge - Discharge Information Problems reviewed: Yes Clinical Impression/Diagnosis: Vaginal bleeding Condition: Improved Disposition: HOME - Follow up/Referral Referrals: Annie Lion MD [Staff Physician] - Yong Cook MD [Staff Physician] - - Patient Discharge Instructions Patient Printed Discharge Instructions: DI for Vaginal Bleeding Additional Instructions: 1) Please follow-up with your primary care doctor in the next 1-2 days. Please call tomorrow for for any urgent issues. 2) You were given a copy of the tests performed today. Please bring the results with you and review them with your primary care doctor. Your laboratory / imaging results were normal, your ultrasound did not show a . your test was also negative 3) If you have any worsening of symptoms or any other concerns please return to the ED immediately. Return if worsening symptoms including fevers, headache, vomiting, visual or hearing disturbances, abdominal pain, chest pain, shortness of breath, syncope, dehydration, inability to take things by mouth/vomiting, altered mental status, or worsening concerning symptoms. Stay well hydrated and rest adequately. Make an appointment. If you cannot follow-up with your primary care doctor please return to the ED - Post Discharge Activity Work/Back to School Note: Back to Work
[2019-01-01 11:36] LABS: PH,URINE 6.5 (5.0-8.0); URINE APPEARANCE CLOUDY; URINE BILIRUBIN NEGATIVE (NEGATIVE); URINE COLOR YELLOW; URINE GLUCOSE (UA) NEGATIVE (NEGATIVE); URINE KETONE NEGATIVE (NEGATIVE); URINE LEUK ESTERASE NEGATIVE (NEGATIVE); URINE NITRITE NEGATIVE (NEGATIVE); URINE PROTEIN NEGATIVE (NEGATIVE)
[2019-01-01 12:53] LABS: BASO % 0.6 % (0-2.0); EOS % 1.5 % (0-4.5); HEMATOCRIT 37.5 % (32.4-45.2); HEMOGLOBIN 13.1 GM/dL (10.7-15.3); LYMPH % 31.3 % (8-40); MCH 29.3 pg (25.7-33.7); MCHC 34.9 g/dl (32.0-36.0); MEAN CELL VOLUME 83.8 fl (80-96); MEAN PLT VOLUME 9.2 fl (7.5-11.1); MONO % 8.7 % (3.8-10.2); NEUT % 57.9 % (42.8-82.8); PLATELET COUNT 323 K/MM3 (134-434); RBC 4.47 M/mm3 (3.60-5.2); RDW 13.7 % (11.6-15.6); WHITE BLOOD COUNT 7.3 K/mm3 (4.0-10.0)
[2019-01-01 13:24] LABS: ALK PHOS 58 U/L (45-117); ANION GAP 7 MMOL/L (8-16); BILIRUBIN,TOTAL 0.6 mg/dL (0.2-1); BLOOD UREA NITROGEN 14.5 mg/dL (7-18); CALCIUM 9.3 mg/dL (8.5-10.1); CHLORIDE 103 mmol/L (98-107); CO2 27 mmol/L (21-32); CREATININE 0.7 mg/dL (0.55-1.3); GLUCOSE,RANDOM 85 mg/dL (74-106); POTASSIUM 4.2 mmol/L (3.5-5.1); SGOT/AST 23 U/L (15-37); SGPT/ALT 42 U/L (13-61); SODIUM 136 mmol/L (136-145); TOT PROT 7.7 g/dl (6.4-8.2)
[2019-01-01 14:21] VITALS: BP 106/72; PULSE 83
== END 2019-01-01 14:21 | disposition home or self-care (01) ==
LOC: JER 10:53
PROC: 3E0337Z Introduction of Electrolytic and Water Balance Substance into Peripheral Vein, Percutaneous Approach (ICD-10-PCS; principal; 2019-01-01)
PROC: BW4GZZZ Ultrasonography of Pelvic Region (ICD-10-PCS; 2019-01-01)
PROC: BW40ZZZ Ultrasonography of Abdomen (ICD-10-PCS; 2019-01-01)
PROC: 3E0337Z Introduction of Electrolytic and Water Balance Substance into Peripheral Vein, Percutaneous Approach (ICD-10-PCS; 2019-01-01)
DX: N93.8 Other specified abnormal uterine and vaginal bleeding (principal); N93.0 Postcoital and contact bleeding
CPT/HCPCS: 36415; 76801-TC; 80053; 81003; 84702; 85025; 87086; 99283-25; J7030

== ENCOUNTER 2020-04-12 20:24 | Inpatient (IN) | payer OTHER ==
[2020-04-12] MEDS ORDERED: IBUPROFEN 600 MG TABLET (FP) PO ONE ×2 (22:30→22:36)
[2020-04-13] MEDS ORDERED: IMIPENEM/CILASTATIN SODIUM 500 MG in SODIUM CHLORIDE 100 ML IV ONE (00:31)
[2020-04-13] MEDS ORDERED: IMIPENEM/CILASTATIN SODIUM 500 MG in SODIUM CHLORIDE 100 ML IVPB ONE ×2 (00:44→16:08)
[2020-04-13 01:05] LABS: BASO % 0.6 % (0-2.0); EOS % 4.8 % (0-4.5); HEMOGLOBIN 12.7 GM/dL (10.7-15.3); LYMPH % 32.6 % (8-40); MCH 29.4 pg (25.7-33.7); MCHC 35.2 g/dl (32.0-36.0); MEAN CELL VOLUME 83.5 fl (80-96); MEAN PLT VOLUME 9.1 fl (7.5-11.1); MONO % 11.1 % (3.8-10.2); NEUT % 50.9 % (42.8-82.8); PLATELET COUNT 323 K/MM3 (134-434); RBC 4.31 M/mm3 (3.60-5.2); RDW 13.9 % (11.6-15.6); WHITE BLOOD COUNT 7.6 K/mm3 (4.0-10.0)
[2020-04-13 01:31] LABS: POTASSIUM 4.1 mmol/L (3.5-5.1)
[2020-04-13 01:33] LABS: BLOOD UREA NITROGEN 15.2 mg/dL (7-18); CALCIUM 8.8 mg/dL (8.5-10.1)
[2020-04-13 01:36] LABS: CREATININE 0.7 mg/dL (0.55-1.3)
[2020-04-13 01:38] LABS: BILIRUBIN,TOTAL 0.4 mg/dL (0.2-1); TOT PROT 7.6 g/dl (6.4-8.2)
[2020-04-13] MEDS ORDERED: PIPERACILLIN/TAZOB 3.375 GM 3.375 GM in DEXTROSE 5%-WATER - 50 ML IVPB ONE ×2 (03:55→09:30)
[2020-04-13 07:38] LABS: BASO % 0.7 % (0-2.0); EOS % 5.3 % (0-4.5); HEMATOCRIT 35.2 % (32.4-45.2); HEMOGLOBIN 12.3 GM/dL (10.7-15.3); LYMPH % 35.8 % (8-40); MCH 29.4 pg (25.7-33.7); MEAN CELL VOLUME 83.9 fl (80-96); MEAN PLT VOLUME 8.8 fl (7.5-11.1); MONO % 14.2 % (3.8-10.2); PLATELET COUNT 301 K/MM3 (134-434); RDW 13.9 % (11.6-15.6); WHITE BLOOD COUNT 6.2 K/mm3 (4.0-10.0)
[2020-04-13 07:48] LABS: POTASSIUM 3.6 mmol/L (3.5-5.1)
[2020-04-13 07:50] LABS: CALCIUM 8.9 mg/dL (8.5-10.1)
[2020-04-13 07:51] LABS: ALBUMIN 3.6 g/dl (3.4-5.0); BLOOD UREA NITROGEN 13.6 mg/dL (7-18); MAGNESIUM 2.1 mg/dL (1.8-2.4)
[2020-04-13 07:54] LABS: CREATININE 0.7 mg/dL (0.55-1.3); PHOSPHOROUS 3.7 mg/dL (2.5-4.9)
[2020-04-13 07:56] LABS: BILIRUBIN,TOTAL 0.4 mg/dL (0.2-1)
[2020-04-13] MEDS ORDERED: PIPERACILLIN/TAZOB 3.375 GM 3.375 GM/50 ML BAG IVPB ONE (10:40)
[2020-04-13] MEDS ORDERED: ENOXAPARIN NA (PORCINE) 40 MG/0.4 ML DISP.SYRIN SQ ONE (10:40)
[2020-04-13] MEDS: IBUPROFEN 400 MG TABLET (FP) PO PRN (11:16)
[2020-04-13] MEDS: ENOXAPARIN NA (PORCINE) 40 MG/0.4 ML DISP.SYRIN SQ SCH (11:16)
[2020-04-13] MEDS ORDERED: IBUPROFEN 400 MG TABLET (FP) PO ONE (11:30)
[2020-04-13] MEDS ORDERED: PIPERACILLIN/TAZOB 2.25 GM 2.25 GM/50 ML BAG IVPB ONE (18:11)
[2020-04-13] MEDS: PIPERACILLIN/TAZOB 2.25 GM 2.25 GM in DEXTROSE 5%-WATER - 50 ML IVPB SCH (18:33)
[2020-04-14] MEDS ORDERED: PIPERACILLIN/TAZOBACTAM 2.25 GM VIAL IVPB ONE ×3 (02:46→17:19)
[2020-04-14] MEDS ORDERED: DEXTROSE 5%-WATER - 50 ML IVPB ONE ×3 (02:46→17:20)
[2020-04-14] MEDS: PIPERACILLIN/TAZOB 2.25 GM 2.25 GM in DEXTROSE 5%-WATER - 50 ML IVPB SCH ×3 (02:48→17:42)
[2020-04-14] MEDS: IBUPROFEN 400 MG TABLET (FP) PO PRN ×2 (02:48→14:58)
[2020-04-14 04:33] VITALS: BMI 29.2
[2020-04-14 09:49] LABS: HEMATOCRIT 37.8 % (32.4-45.2); HEMOGLOBIN 12.2 GM/dl (10.7-15.3)
[2020-04-14 09:54] LABS: BASO % 2.6 % (0-2.0); EOS % 4.2 % (0-4.5); LYMPH % 30.5 % (8-40); MCH 27.9 pg (25.7-33.7); MCHC 32.3 g/dl (32.0-36.0); MEAN CELL VOLUME 86.3 fl (80-96); MEAN PLT VOLUME 8.4 fl (7.5-11.1); MONO % 9.5 % (3.8-10.2); NEUT % 53.2 % (42.8-82.8); PLATELET COUNT 372 K/MM3 (134-434); RBC 4.38 M/mm3 (3.60-5.2); WHITE BLOOD COUNT 6.1 K/mm3 (4.0-10.8)
[2020-04-14] MEDS: ENOXAPARIN NA (PORCINE) 40 MG/0.4 ML DISP.SYRIN SQ SCH (09:56)
[2020-04-14 10:10] LABS: ALBUMIN 3.8 g/dl (3.4-5.0); BILIRUBIN,TOTAL 0.6 mg/dl (0.2-1); CALCIUM 8.8 mg/dl (8.5-10); CREATININE 0.8 mg/dl (0.55-1.3); PHOSPHOROUS 3.8 mg/dl (2.5-4.9); POTASSIUM 3.5 mmol/L (3.5-5.1); TOT PROT 6.8 g/dl (6.4-8.2)
[2020-04-15] MEDS ORDERED: PIPERACILLIN/TAZOBACTAM 2.25 GM VIAL IVPB ONE ×2 (03:33→09:08)
[2020-04-15] MEDS ORDERED: DEXTROSE 5%-WATER - 50 ML IVPB ONE ×2 (03:34→09:08)
[2020-04-15] MEDS: PIPERACILLIN/TAZOB 2.25 GM 2.25 GM in DEXTROSE 5%-WATER - 50 ML IVPB SCH ×2 (03:38→09:47)
[2020-04-15 09:00] LABS: BASO % 1.7 % (0-2.0); EOS % 2.9 % (0-4.5); HEMATOCRIT 37.3 % (32.4-45.2); HEMOGLOBIN 12.9 GM/dl (10.7-15.3); LYMPH % 36.9 % (8-40); MCH 29.2 pg (25.7-33.7); MCHC 34.6 g/dl (32.0-36.0); MEAN CELL VOLUME 84.4 fl (80-96); MEAN PLT VOLUME 8.5 fl (7.5-11.1); MONO % 6.9 % (3.8-10.2); NEUT % 51.6 % (42.8-82.8); PLATELET COUNT 359 K/MM3 (134-434); RBC 4.41 M/mm3 (3.60-5.2); RDW 13.1 % (11.6-15.6); WHITE BLOOD COUNT 6.1 K/mm3 (4.0-10.8)
[2020-04-15 09:09] LABS: BILIRUBIN,TOTAL 0.6 mg/dl (0.2-1); CALCIUM 9.2 mg/dl (8.5-10); CREATININE 0.6 mg/dl (0.55-1.3); POTASSIUM 4.1 mmol/L (3.5-5.1)
[2020-04-15 09:43] VITALS: BP 96/65; PULSE 68; TEMP 98.5
== END 2020-04-15 12:30 | disposition home or self-care (01) | DRG 113 ==
LOC: JER 20:24 → JERBED 04-13 01:45 → FM/S 04-14 02:41
PROVIDERS: ADMIT Internal Medicine; ATTEND Nurse Practitioner Acute Care
DX: H70.002 Acute mastoiditis without complications, left ear (principal); H66.92 Otitis media, unspecified, left ear; J03.90 Acute tonsillitis, unspecified
CPT/HCPCS: 36415; 70480-TC; 80053; 83735; 84100; 84703; 85025; 85651; 86140; 87070; 87081; 87880; 93005; 93010; 99285-25; C9803; U0003

== ENCOUNTER 2020-07-02 23:00 | Emergency (ER) | payer OTHER ==
[2020-07-02 23:10] VITALS: BP 124/78; PULSE 89; TEMP 98.4; BMI 26.4
[2020-07-03 01:00] LABS: BASO % 0.4 % (0-2.0); EOS % 2.6 % (0-4.5); HEMOGLOBIN 13.1 GM/dL (10.7-15.3); LYMPH % 31.7 % (8-40); MCH 28.3 pg (25.7-33.7); MCHC 33.6 g/dl (32.0-36.0); MEAN CELL VOLUME 84.2 fl (80-96); MEAN PLT VOLUME 9.1 fl (7.5-11.1); MONO % 8.5 % (3.8-10.2); NEUT % 56.8 % (42.8-82.8); PLATELET COUNT 310 K/MM3 (134-434); RBC 4.63 M/mm3 (3.60-5.2); RDW 17.2 % (11.6-15.6); WHITE BLOOD COUNT 8.3 K/mm3 (4.0-10.0)
[2020-07-03 01:05] LABS: INR 1.08 (0.83-1.09); PROTHROMBIN TIME (PATIENT) 13.2 SEC (9.7-13.0)
[2020-07-03 01:10] LABS: POTASSIUM 4.3 mmol/L (3.5-5.1)
[2020-07-03 01:12] LABS: BLOOD UREA NITROGEN 14.2 mg/dL (7-18); CALCIUM 9.6 mg/dL (8.5-10.1)
[2020-07-03 01:13] LABS: ALBUMIN 4.1 g/dl (3.4-5.0)
[2020-07-03 01:15] LABS: CREATININE 0.7 mg/dL (0.55-1.3)
[2020-07-03 01:17] LABS: BILIRUBIN,TOTAL 0.5 mg/dL (0.2-1); TOT PROT 7.8 g/dl (6.4-8.2)
[2020-07-03 01:20] LABS: N-TERMINAL BNP 5.8 pg/ml (5-125)
== END 2020-07-03 01:55 | disposition home or self-care (01) ==
LOC: JER 23:00
DX: R06.02 Shortness of breath (principal)
CPT/HCPCS: 36415; 71046-TC-FY; 80053; 83880; 84703; 85025; 85610; 85730; 93005; 93010; 99285-25

== ENCOUNTER 2020-10-24 00:12 | Emergency (ER) | payer OTHER ==
[2020-10-24 00:30] VITALS: BMI 27.5
[2020-10-24] MEDS ORDERED: ACETAMINOPHEN 1000 MG/100 ML VIAL (NON FORMULARY) IVPB ONE (01:38)
[2020-10-24] MEDS ORDERED: ONDANSETRON 4 MG/2 ML VIAL IVPUSH ONE (01:38)
[2020-10-24] MEDS ORDERED: ONDANSETRON 4 MG/2 ML VIAL ONE (01:50)
[2020-10-24] MEDS ORDERED: ACETAMINOPHEN INJECTION 100 ML IVPB ONE (01:50)
[2020-10-24] MEDS ORDERED: LACTATED RINGERS SOLUTION 1000 ML INFUS.BAG IV ONE (01:56)
[2020-10-24 02:20] LABS: BASO % 0.5 % (0-2.0); EOS % 1.3 % (0-4.5); HEMATOCRIT 37.7 % (32.4-45.2); HEMOGLOBIN 12.9 GM/dL (10.7-15.3); LYMPH % 34.7 % (8-40); MCH 28.8 pg (25.7-33.7); MCHC 34.2 g/dl (32.0-36.0); MEAN CELL VOLUME 84.2 fl (80-96); MEAN PLT VOLUME 8.9 fl (7.5-11.1); MONO % 8.3 % (3.8-10.2); NEUT % 55.2 % (42.8-82.8); PLATELET COUNT 332 10^3/uL (134-434); RBC 4.48 M/mm3 (3.60-5.2); RDW 15.5 % (11.6-15.6); WHITE BLOOD COUNT 8.7 K/mm3 (4.0-10.0)
[2020-10-24 02:40] LABS: CHLORIDE 104 mmol/L (98-107); SODIUM 129 mmol/L (136-145)
[2020-10-24 02:41] LABS: CALCIUM 8.5 mg/dL (8.5-10.1)
[2020-10-24 02:42] LABS: BLOOD UREA NITROGEN 13.9 mg/dL (7-18); CO2 23 mmol/L (21-32); GLUCOSE,RANDOM 86 mg/dL (74-106); MAGNESIUM 2.3 mg/dL (1.8-2.4)
[2020-10-24 02:45] LABS: CREATININE 0.7 mg/dL (0.55-1.3)
[2020-10-24] MEDS ORDERED: SODIUM CHLORIDE 0.9% 500 ML INFUS.BAG IV ONE (02:49)
[2020-10-24 02:57] LABS: ANION GAP 2 MMOL/L (8-16)
[2020-10-24 04:36] LABS: BLOOD UREA NITROGEN 12.8 mg/dL (7-18); CALCIUM 8.4 mg/dL (8.5-10.1)
[2020-10-24 04:40] LABS: CREATININE 0.6 mg/dL (0.55-1.3)
[2020-10-24 05:40] VITALS: BP 112/92; PULSE 61; TEMP 98.6
== END 2020-10-24 06:07 | disposition home or self-care (01) ==
LOC: JER 00:12
PROC: 3E0333Z Introduction of Anti-inflammatory into Peripheral Vein, Percutaneous Approach (ICD-10-PCS; principal; 2020-10-24)
PROC: 3E033GC Introduction of Other Therapeutic Substance into Peripheral Vein, Percutaneous Approach (ICD-10-PCS; 2020-10-24)
DX: R05 Cough (principal)
CPT/HCPCS: 36415; 70481-TC; 71045-TC-FY; 80048; 83735; 84703; 85025; 87804; 93005; 93010; 99285-25; C9803; J0131; Q9967; U0003; U0005

== ENCOUNTER 2022-09-06 19:59 | Emergency (ER) | payer OTHER ==
[2022-09-06 20:08] VITALS: RESP 18; BMI 27.7
[2022-09-07 00:12] LABS: BASO % 0.4 % (0-2.0); EOS % 3.9 % (0-4.5); HEMATOCRIT 37.6 % (32.4-45.2); HEMOGLOBIN 13.2 GM/dL (10.7-15.3); MCH 28.7 pg (25.7-33.7); MEAN PLT VOLUME 8.6 fl (7.5-11.1); MONO % 6.7 % (3.8-10.2); PLATELET COUNT 348 10^3/uL (134-434); RBC 4.59 M/mm3 (3.60-5.2); RDW 13.4 % (11.6-15.6)
[2022-09-07 00:13] LABS: URINE APPEARANCE CLEAR; URINE BILIRUBIN NEGATIVE (NEGATIVE); URINE COLOR YELLOW; URINE GLUCOSE (UA) NEGATIVE (NEGATIVE); URINE KETONE NEGATIVE (NEGATIVE); URINE LEUK ESTERASE NEGATIVE (NEGATIVE); URINE NITRITE NEGATIVE (NEGATIVE); URINE PROTEIN NEGATIVE (NEGATIVE); URINE UROBILINOGEN 0.2 mg/dL (0.2-1.0)
[2022-09-07 00:15] LABS: HCG,QUALITATIVE URINE Negative
[2022-09-07 00:23] LABS: INR 1.07 (0.83-1.09); PROTHROMBIN TIME (PATIENT) 12.4 SEC (9.7-13.0)
[2022-09-07 00:26] LABS: ACTIVATED PTT 35.8 SECONDS (25.2-36.5)
[2022-09-07 00:35] LABS: POTASSIUM 4.1 mmol/L (3.5-5.1)
[2022-09-07 00:37] LABS: CALCIUM 9.2 mg/dL (8.5-10.1)
[2022-09-07 00:38] LABS: ALBUMIN 3.8 g/dl (3.4-5.0); BLOOD UREA NITROGEN 15.3 mg/dL (7-18)
[2022-09-07 00:41] LABS: CREATININE 0.9 mg/dL (0.55-1.3)
[2022-09-07 00:43] LABS: BILIRUBIN,TOTAL 0.4 mg/dL (0.2-1); TOT PROT 7.5 g/dl (6.4-8.2)
[2022-09-07 02:12] VITALS: BP 104/70; PULSE 82; TEMP 98.1
== END 2022-09-07 03:07 | disposition home or self-care (01) ==
LOC: JER 19:59
DX: R07.9 Chest pain, unspecified (principal); R53.83 Other fatigue; M79.604 Pain in right leg; M79.605 Pain in left leg
CPT/HCPCS: 36415; 71046-TC-FY; 80053; 81003; 84443; 84484; 84703; 85025; 85379; 85610; 85730; 93005; 93010; 99285-25

== ENCOUNTER 2023-05-14 22:54 | Emergency (ER) | payer OTHER ==
[2023-05-14 23:02] VITALS: BP 110/77; PULSE 88; RESP 18; TEMP 98.3; BMI 28.5
== END 2023-05-15 00:37 | disposition home or self-care (01) ==
LOC: JER 22:54
DX: R05.9 Cough, unspecified (principal); R06.02 Shortness of breath; R51.9 Headache, unspecified; J02.9 Acute pharyngitis, unspecified; H92.02 Otalgia, left ear; Z20.822 Contact with and (suspected) exposure to COVID-19
CPT/HCPCS: 0241U-QW; 71046-TC-FY; 99284-25

== ENCOUNTER 2023-10-22 11:39 | Emergency (ER) | payer OTHER ==
[2023-10-22 11:50] VITALS: BP 106/73; TEMP 98.4; BMI 28.3
[2023-10-22 13:33] VITALS: PULSE 88; RESP 16
== END 2023-10-22 13:37 | disposition home or self-care (01) ==
LOC: JERFT 11:39
DX: R05.9 Cough, unspecified (principal)
CPT/HCPCS: 71046-TC-FY; 99283-25